=== PATIENT | male | born 1960 | race Caucasian/White ===

== ENCOUNTER 2019-03-31 08:20 | Emergency (ER) | payer OTHER, SELFPAY ==
[2019-03-31 08:20] VITALS: BP 147/98; PULSE 98; RESP 18; TEMP 36.6; O2SAT 100
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
[2019-03-31] MEDS: KETOROLAC 60 MG/2 ML VIAL 30 MG IM (08:47)
[2019-03-31] MEDS: LORazepam 2 MG/ML INJ 1 MG IM (08:48)
[2019-03-31 10:00] VITALS: BP 125/89; PULSE 63; RESP 20; O2SAT 98
== END 2019-03-31 10:25 | disposition home or self-care (01) ==
PROVIDERS: Emergency Provider Emergency Medicine
DX: M62.831 Muscle spasm of calf (principal); K59.09 Other constipation
CPT/HCPCS: 96372; 99283; J1885; J2060

== ENCOUNTER 2019-04-13 08:52 | Emergency (ER) | payer OTHER, SELFPAY ==
[2019-04-13 09:03] VITALS: BP 146/98; PULSE 109; RESP 22; TEMP 36.1; O2SAT 99; BMI 20.5
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
[2019-04-13] MEDS: HYDROMORPHONE 1 MG INJ IM (10:44)
[2019-04-13] MEDS: KETOROLAC 60 MG/2 ML VIAL IM (10:44)
--- NOTE | 2019-04-13 10:50 | PC.NURSE ---
pt c/o right hip pain going down right leg. started 8 days ago, gradually getting worse. seen here for the same, pain continues and worse. pt has limp at baseline. states is suppose to be in wheelchair, but refuses. states today worse limp due to pain
[2019-04-13 12:12] VITALS: BP 132/90; PULSE 86; RESP 18; O2SAT 96
== END 2019-04-13 12:28 | disposition home or self-care (01) ==
PROVIDERS: Emergency Provider Emergency Medicine
DX: S76.011D Strain of muscle, fascia and tendon of right hip, subsequent encounter (principal); V18.0XXA Pedal cycle driver injured in noncollision transport accident in nontraffic accident, initial encounter
CPT/HCPCS: 73502; 96372; 99282; 99283; J1170; J1885

== ENCOUNTER 2019-04-18 10:29 | Emergency (ER) | payer OTHER, SELFPAY ==
[2019-04-18 10:37] VITALS: BP 127/94; PULSE 111; RESP 22; TEMP 36.5; O2SAT 97; BMI 22.0
[2019-04-18 11:22] VITALS: BP 133/96; PULSE 104; RESP 18; TEMP 36.6; O2SAT 96
[2019-04-18 11:24] VITALS: BP 127/94; PULSE 104; RESP 18; TEMP 36.6; O2SAT 96; BMI 22.0
--- NOTE | 2019-04-18 11:27 | PC.NURSE ---
during primary assessment pt disclosed that he has had thoughts as recently as last night about killing himself and states that he thought he would hang himself, but that he does not have plans to act out these plans
[2019-04-18] MEDS: HYDROCODONE/ACET 5/325 TABLET 1 TAB PO (13:04)
[2019-04-18] MEDS: LIDOCAINE PATCH 1 EACH ADH..PATCH TOP (13:05)
[2019-04-18] MEDS: CYCLOBENZAPRINE 10 MG TABLET PO (13:05)
[2019-04-18 13:09] VITALS: BP 132/98; PULSE 89; RESP 20; O2SAT 100
[2019-04-18 13:47] LABS: Urine Amphetamines Negative (Negative); Urine Barbiturates Negative (Negative); Urine Benzodiazepines Negative (Negative); Urine Cocaine Negative (Negative); Urine MDMA Negative (Negative); Urine Methadone Negative (Negative); Urine Methamphetamines Negative (Negative); Urine Morphine/Opi cutoff 2000 Negative (Negative); Urine Oxycodone Negative (Negative); Urine Phencyclidine Negative (Negative); Urine Tetrahydrocannabinol Positive (Negative); Urine Tricyclic Antidepressant Negative (Negative)
[2019-04-18 14:02] LABS: Add Manual Diff / Slide Review NO; Basophils Absolute Auto 100 /uL (0-100); Basophils Percent Auto 1.1 % (0-2); Eosinophils Absolute Auto 200 /uL (0-450); Eosinophils Percent Auto 3.5 % (2-4); Hematocrit 46.1 % (41-53); Hemoglobin 15.9 g/dL (13.5-17.5); Lymphocytes Absolute Auto 2300 /uL (1100-4500); Lymphocytes Percent Auto 33.5 % (25-40); Mean Corpuscular HGB Conc 34.5 % (30-36); Mean Corpuscular Hemoglobin 32.9 PG (26-34); Mean Corpuscular Volume 95.4 fL (80-100); Monocytes Absolute Auto 600 /uL (0-900); Monocytes Percent Auto 9.2 % (3-14); Neutrophils Absolute Auto 3600 /uL (1500-7000); Neutrophils Percent Auto 52.7 % (50-75); Platelet Count 318 X10^3/uL (150-400); Red Blood Cell Count 4.83 X10^6/uL (4.5-5.9); Red Cell Distribution Width 14.8 % (11.6-14.8); White Blood Cell Count 6.9 X10^3/uL (4.5-11.0)
[2019-04-18 14:08] LABS: Acetaminophen < 10 ug/mL (10-30); Alanine Aminotransferase 24 IU/L (21-72); Albumin 4.4 g/dL (3.5-5.0); Albumin Globulin Ratio 1.3 (1.0-2.8); Alkaline Phosphatase 64 U/L (38-126); Aspartate Aminotransferase 47 IU/L (17-59); BUN Creatinine Ratio 31.3 (6-22); Bilirubin Total 0.7 mg/dL (0.2-1.3); Blood Urea Nitrogen 25 mg/dL (9-20); Calcium 9.9 mg/dL (8.4-10.2); Carbon Dioxide 30 mmol/L (22-32); Chloride 100 mmol/L (98-107); Estimated Glomerular Filt Rate > 60.0 mL/min (>60); Ethanol (ETOH) < 10 mg/dL; Globulin 3.3 g/dL (1.7-4.1); Glucose 101 mg/dL (70-100); HEMOLYSIS 20 (0-50); Potassium 5.2 mmol/L (3.4-5.1); Salicylate < 1.0 mg/dL (<20); Sodium 138 mmol/L (137-145); Total Protein 7.7 g/dL (6.3-8.2)
[2019-04-18 14:51] LABS: Thyroid Stimulating Hormone 0.92 uIU/mL (0.47-4.68)
[2019-04-18 15:09] LABS: Urine N gonorrhoeae NOT DETECTED
[2019-04-18 15:10] LABS: Urine Chlamydia NOT DETECTED
[2019-04-18] MEDS: KETOROLAC 60 MG/2 ML VIAL IM (16:13)
[2019-04-18 16:35] VITALS: BP 119/75; PULSE 72; RESP 16; O2SAT 94
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
== END 2019-04-18 16:41 | disposition home or self-care (01) ==
PROVIDERS: Emergency Provider Nurse Practitioner Family
DX: M54.5 Low back pain (principal); R35.0 Frequency of micturition
CPT/HCPCS: 36415; 80053; 80305; 80320; 80329; 81003; 82962; 84443; 85025; 87491; 87591; 96372; 99283; G0480; J1885